=== PATIENT | male | born 1935 | race Caucasian/White ===

== ENCOUNTER → 2018-09-07 | Day surgery (SDC) | payer MEDICARE, BC | LOC: MSO 07:01 | DX: H25.811 Combined forms of age-related cataract, right eye (principal); Z96.651 Presence of right artificial knee joint; Z79.01 Long term (current) use of anticoagulants; I10 Essential (primary) hypertension | CPT/HCPCS: 00142; J0171; J2250; J3010; V2632 ==

== ENCOUNTER 2019-09-20 09:00 | Outpatient (RCR) | payer MEDICARE, BC | END 2019-11-06 | disposition still patient (30) | LOC: PT | DX: M25.551 Pain in right hip (principal) ==

== ENCOUNTER → 2023-08-12 | Outpatient (CLI) | payer MEDICARE, BC | LOC: RAD 06:43 | DX: M51.36 Other intervertebral disc degeneration, lumbar region (principal); M51.37 Other intervertebral disc degeneration, lumbosacral region; M48.061 Spinal stenosis, lumbar region without neurogenic claudication; M48.07 Spinal stenosis, lumbosacral region; Z98.890 Other specified postprocedural states | CPT/HCPCS: A9575 ==

== ENCOUNTER 2023-08-25 10:00 | Outpatient (RCR) | payer MEDICARE, BC | END 2023-09-09 | disposition home or self-care (01) | LOC: PT | DX: M25.552 Pain in left hip (principal) ==